=== PATIENT | female | born 1990 | race Caucasian/White ===

== ENCOUNTER 2020-07-01 05:34 | Inpatient (IN) | payer BC ==
[~2020-07-01] VITALS: Ht 160 cm; Wt 118.2 kg
[2020-07-01] MEDS ORDERED: LACTATED RINGERS 1,000 ML IVBOLUS ONE (06:00)
[2020-07-01] MEDS ORDERED: SODIUM CITRATE/CITRIC ACID 30 ML UDC PO ONE (06:00)
[2020-07-01] MEDS ORDERED: METOCLOPRAMIDE 5 MG/ML, 2ML IV ONE (06:00)
[2020-07-01 06:07] LABS: BASOPHILS # (AUTO) 0.06 x10^3/uL (0-0.1); BASOPHILS % (AUTO) 1 % (0-1); EOSINOPHILS # (AUTO) 0.21 x10^3/uL (0-0.4); EOSINOPHILS % (AUTO) 2 % (1-7); LYMPHOCYTES # (AUTO) 1.99 x10^3/uL (1-3.4); LYMPHOCYTES % (AUTO) 21 % (22-44); MD NO; MEAN CORPUSCULAR HEMOGLOBIN 31.5 pg (27.0-34.8); MEAN CORPUSCULAR HGB CONC 32.9 g/dL (32.4-35.8); MEAN PLATELET VOLUME 9.5 fL (7.4-10.4); MONOCYTES # (AUTO) 0.51 x10^3/uL (0.2-0.8); MONOCYTES % (AUTO) 5 % (2-9); NEUTROPHILS # (AUTO) 6.87 x10^3/uL (1.8-6.8); NEUTROPHILS % (AUTO) 71 % (42-75); PLATELET COUNT 228 x10^3/uL (130-400); RED BLOOD COUNT 3.75 x10^6/uL (3.82-5.3); RED CELL DISTRIBUTION WIDTH 13.4 % (9.6-15.2)
[2020-07-01] MEDS ORDERED: OXYTOCIN 30U/ 0.9% NaCL 500ML 500 ML ONE (06:14)
[2020-07-01] MEDS ORDERED: NEWBORN KIT ONE (06:14)
[2020-07-01] MEDS ORDERED: METOCLOPRAMIDE 5 MG/ML, 2ML ONE (06:14)
[2020-07-01 06:38] LABS: ALANINE AMINOTRANSFERASE 6 U/L (12-78); ALBUMIN 2.4 g/dL (3.4-5.0); ANION GAP 8 mmol/L (5-15); CALCIUM 9.4 mg/dL (8.5-10.1); CHLORIDE 110 mmol/L (98-107); CREATININE 0.88 mg/dL (0.55-1.02)
[2020-07-01 06:40] LABS: ALKALINE PHOSPHATASE 141 U/L (45-117); BILIRUBIN,TOTAL 0.3 mg/dL (0.2-1.0); TOTAL PROTEIN 6.2 g/dL (6.4-8.2)
[2020-07-01] MEDS ORDERED: FENTANYL PF 100 MCG/2ML ONE (07:13)
[2020-07-01 07:27] LABS: MICROSCOPIC NOT IND
[2020-07-01 07:39] LABS: CREATININE,URINE RANDOM 79.6 mg/dL
[2020-07-01] MEDS ORDERED: CEFAZOLIN 1,000 MG ONE ×2 (08:03)
[2020-07-01] MEDS ORDERED: OXYTOCIN 10 UNITS/ML, 1ML ONE ×3 (08:03)
[2020-07-01] MEDS ORDERED: KETOROLAC 30 MG/1 ML ONE (08:03)
[2020-07-01] MEDS ORDERED: ONDANSETRON 2MG/ML, 2ML ONE (08:41)
[2020-07-01] MEDS: LACTATED RINGERS 1,000 ML IV SCH ×4 (08:54→18:54)
[2020-07-01] MEDS: OXYTOCIN 30U/ 0.9% NaCL 500ML 500 ML IV SCH ×2 (08:59→18:54)
[2020-07-01] MEDS ORDERED: ACETAMINOPHEN 325 MG TABLET PO PRN (09:00)
[2020-07-01] MEDS ORDERED: MISOPROSTOL 200 MCG TABLET PR PRN (09:00)
[2020-07-01] MEDS ORDERED: CALCIUM CARBONATE 500 MG TAB.CHEW PO PRN (09:00)
[2020-07-01] MEDS: PRENATAL VIT/IRON/FA 1 EACH TABLET PO SCH (09:00)
[2020-07-01] MEDS ORDERED: OXYcodone 5 MG/5 ML ORAL.SOL UDC PO PRN (09:00)
[2020-07-01] MEDS ORDERED: ALBUTEROL/IPRATROPIUM 2.5MG/0.5MG, 3 ML NPPB PRN (09:00)
[2020-07-01] MEDS ORDERED: DIPHENHYDRAMINE 50 MG/ML, 1ML IVPush PRN (09:00)
[2020-07-01] MEDS ORDERED: CARBOPROST TROMETHAMINE 250 MCG/ML, 1ML IM PRN (09:00)
[2020-07-01] MEDS ORDERED: hydrALAzine 20 MG/ML, 1ML IV PRN (09:00)
[2020-07-01] MEDS ORDERED: ONDANSETRON 2MG/ML, 2ML IVPush PRN (09:00)
[2020-07-01] MEDS ORDERED: PROMETHAZINE 25 MG/ML, 1ML IVPush PRN (09:00)
[2020-07-01] MEDS ORDERED: morphine SULFATE 10 MG/ML, 1ML IVPush PRN ×2 (09:00)
[2020-07-01] MEDS ORDERED: ONDANSETRON 2MG/ML, 2ML IV PRN (09:00)
[2020-07-01] MEDS ORDERED: METHYLERGONOVINE 0.2 MG/ML IM PRN (09:00)
[2020-07-01] MEDS ORDERED: FENTANYL PF 100 MCG/2ML IV PRN (09:00)
[2020-07-01] MEDS ORDERED: SIMETHICONE 80 MG CHEW TAB PO PRN (09:00)
[2020-07-01] MEDS ORDERED: EPHEDRINE 50 MG/ML, 1ML IVPush PRN (09:00)
[2020-07-01] MEDS ORDERED: LABETALOL 5MG/ML, 20ML IV PRN (09:00)
[2020-07-01] MEDS: KETOROLAC 30 MG/1 ML IV SCH ×3 (10:00→20:29)
[2020-07-01] MEDS ORDERED: OXYcodone 5 MG/5 ML ORAL.SOL UDC ONE (10:07)
[2020-07-01 10:15] VITALS: BP 125/80
[2020-07-01] MEDS ORDERED: DIPH,PERTUSS(ACELL),TET VAC/PF NC IM-VACC ONE (14:00)
[2020-07-01 14:15] VITALS: BP 126/80
[2020-07-01] MEDS: OXYcodone/APAP 5/325MG TABLET PO PRN ×2 (16:10→22:34)
[2020-07-01 19:15] VITALS: BP 128/84
[2020-07-02 00:16] VITALS: BP 116/80
[2020-07-02] MEDS: LACTATED RINGERS 1,000 ML IV SCH ×2 (00:54→04:54)
[2020-07-02] MEDS: KETOROLAC 30 MG/1 ML IV SCH ×4 (02:35→21:55)
[2020-07-02] MEDS: OXYcodone/APAP 5/325MG TABLET PO PRN ×5 (02:46→19:41)
[2020-07-02 03:26] VITALS: BP 124/78
[2020-07-02] MEDS: OXYTOCIN 30U/ 0.9% NaCL 500ML 500 ML IV SCH (04:54)
[2020-07-02 04:58] LABS: BASOPHILS # (AUTO) 0.08 x10^3/uL (0-0.1); BASOPHILS % (AUTO) 1 % (0-1); EOSINOPHILS # (AUTO) 0.22 x10^3/uL (0-0.4); EOSINOPHILS % (AUTO) 2 % (1-7); LYMPHOCYTES # (AUTO) 2.13 x10^3/uL (1-3.4); LYMPHOCYTES % (AUTO) 22 % (22-44); MD NO; MEAN CORPUSCULAR HEMOGLOBIN 32.2 pg (27.0-34.8); MEAN CORPUSCULAR HGB CONC 33.3 g/dL (32.4-35.8); MEAN PLATELET VOLUME 10.4 fL (7.4-10.4); MONOCYTES % (AUTO) 6 % (2-9); NEUTROPHILS # (AUTO) 6.64 x10^3/uL (1.8-6.8); NEUTROPHILS % (AUTO) 69 % (42-75); PLATELET COUNT 194 x10^3/uL (130-400); RED BLOOD COUNT 3.31 x10^6/uL (3.82-5.3); RED CELL DISTRIBUTION WIDTH 13.5 % (9.6-15.2)
[2020-07-02 07:10] VITALS: BP 129/83
[2020-07-02] MEDS: PRENATAL VIT/IRON/FA 1 EACH TABLET PO SCH (08:24)
[2020-07-02] MEDS: DOCUSATE 100 MG CAPSULE PO PRN ×2 (08:25→19:41)
[2020-07-02 19:43] VITALS: BP 132/82
[2020-07-03] MEDS: KETOROLAC 30 MG/1 ML IV SCH (03:49)
[2020-07-03 08:12] VITALS: BP 126/81
[2020-07-03] MEDS: OXYcodone/APAP 5/325MG TABLET PO PRN (09:15)
[2020-07-03] MEDS: PRENATAL VIT/IRON/FA 1 EACH TABLET PO SCH (09:15)
[2020-07-03] MEDS: DOCUSATE 100 MG CAPSULE PO PRN (09:15)
[2020-07-03] MEDS ORDERED: IBUPROFEN 600 MG TABLET PO PRN (10:00)
[2020-07-03] MEDS ORDERED: PREN1TAB98 PO (10:43)
[2020-07-03] MEDS ORDERED: IBUP-1222 PO (10:44)
[2020-07-03] MEDS ORDERED: OXYC-302 PO (10:45)
== END 2020-07-03 12:22 | disposition home or self-care (01) | DRG 788 ==
LOC: LDIP 05:34 → 2NW 10:15
PROVIDERS: ADMIT Obstetrics & Gynecology; ATTEND Obstetrics & Gynecology
PROC: 10D00Z1 Extraction of Products of Conception, Low, Open Approach (ICD-10-PCS; principal; 2020-07-01)
DX: O32.1XX0 Maternal care for breech presentation, not applicable or unspecified (principal); Z20.828 Contact with and (suspected) exposure to other viral communicable diseases; O69.81X0 Labor and delivery complicated by cord around neck, without compression, not applicable or unspecified; O34.03 Maternal care for unspecified congenital malformation of uterus, third trimester; Z3A.39 39 weeks gestation of pregnancy; Z37.0 Single live birth; Q51.28 Other and unspecified doubling of uterus
CPT/HCPCS: 36415; 80053; 81003; 82570; 84156; 84550; 85025; 86592; 86850; 86900; 87635; 90715; G0378; J0690; J1885; J2405; J3010; J2270; J2590; J2765; J7120